=== PATIENT | male | born 1980 | race Caucasian/White ===

== ENCOUNTER 2021-08-03 21:36 | Emergency (ER) | payer OTHER ==
[2021-08-03] MEDS ORDERED: BACTRIM DS TAB1 EACH PO (22:26)
[2021-08-03] MEDS ORDERED: AUGMENTIN 875-1 EACH PO (22:26)
== END 2021-08-03 22:54 | disposition home or self-care (01) ==
LOC: FER 21:36
DX: L03.113 Cellulitis of right upper limb (principal); F15.10 Other stimulant abuse, uncomplicated; F17.210 Nicotine dependence, cigarettes, uncomplicated
CPT/HCPCS: 99283